=== PATIENT | male | born 1950 | race Caucasian/White ===

== ENCOUNTER → 2017-03-27 | Outpatient (CLI) | payer MEDICARE, OTHER ==
[~2017-03-27] MED LIST: CARDIZEM CD 24240 MG PO; CELEBREX 200MG200 MG PO; CEPHALEXIN500 M1 PO; COUMADIN 5MG5 MG/TAB PO; MILK OF MA400 MG/5 M PO; NORCO 325 MG-7.1 TAB PO; PRAVACHOL 20MG20 MG PO; PRILOSEC 20MG20 MG PO; PRINIVIL40 MG PO; ROXICODONE 55 MG/TAB; ROXICODONE 55 MG/TAB PO; SENOKOT8.6 MG PO; SYNTHROID0.125 MG/T PO; TOPROL XL 50MG50 MG PO; TYLENOL 500MG500 MG PO; XARELTO10 MG PO
== END ==
LOC: COL.RAD 09:28
DX: M25.552 Pain in left hip (principal); M16.12 Unilateral primary osteoarthritis, left hip
CPT/HCPCS: J3301; Q9967

== ENCOUNTER → 2019-03-18 | Outpatient (CLI) | payer MEDICARE | LOC: COL.RAD 13:09 | DX: E11.9 Type 2 diabetes mellitus without complications (principal); M47.812 Spondylosis without myelopathy or radiculopathy, cervical region; M48.02 Spinal stenosis, cervical region; M47.816 Spondylosis without myelopathy or radiculopathy, lumbar region; M51.16 Intervertebral disc disorders with radiculopathy, lumbar region; M48.061 Spinal stenosis, lumbar region without neurogenic claudication; G60.9 Hereditary and idiopathic neuropathy, unspecified ==

== ENCOUNTER → 2019-04-30 | Outpatient (CLI) | payer MEDICARE | LOC: COL.RAD 14:39 | DX: M51.16 Intervertebral disc disorders with radiculopathy, lumbar region (principal); M50.121 Cervical disc disorder at C4-C5 level with radiculopathy ==

== ENCOUNTER → 2021-11-22 | Outpatient (CLI) | payer MEDICARE | LOC: COL.RAD 11-17 07:30 | DX: M48.02 Spinal stenosis, cervical region (principal); Z98.1 Arthrodesis status | CPT/HCPCS: A9585 ==